=== PATIENT | male | born 1950 | race Caucasian/White ===

== ENCOUNTER → 2019-05-23 | Outpatient (CLI) | payer OTHER ==
--- NOTE | 2019-05-23 18:37 | XR ---
EXAMINATION TYPE: XR Hip RT and AP Pelvis DATE OF EXAM: 05/23/2019 COMPARISON: NONE HISTORY: Right hip pain TECHNIQUE: A single AP view of the pelvis is obtained. Two views of the right hip are obtained. FINDINGS: There is no acute fracture/dislocation evident in the pelvis. The hip and sacroiliac join ts appear symmetric and unremarkable. The overlying soft tissue appears unremarkable. Two views of right hip show no acute fracture or dislocation. There is joint space loss in the right hip with remodeling, subchondral sclerosis. There is marginal spurring greater than left. No focal l ytic or sclerotic lesion seen in the proximal right femur. The overlying soft tissue is unremarkable . Degenerative disc changes are noted incidentally within the lumbar spine. IMPRESSION: Osteoarthritis, degenerative disc disease.
== END | disposition home or self-care (01) ==
LOC: RADXRMAIN 14:37
PROVIDERS: ATTEND Orthopaedic Surgery
DX: M16.11 Unilateral primary osteoarthritis, right hip (principal); M25.851 Other specified joint disorders, right hip; M25.552 Pain in left hip
CPT/HCPCS: 73502

== ENCOUNTER → 2020-01-29 | Outpatient (CLI) | payer MEDICARE | END | disposition home or self-care (01) | LOC: LABPAT 13:04 | PROVIDERS: ATTEND Orthopaedic Surgery | DX: Z01.818 Encounter for other preprocedural examination (principal); M16.11 Unilateral primary osteoarthritis, right hip; Z01.812 Encounter for preprocedural laboratory examination | CPT/HCPCS: 87070 ==

== ENCOUNTER 2020-02-05 08:32 | Inpatient (IN) | payer MEDICARE, OTHER ==
[2020-01-30 15:24] VITALS: BMI 33.3
--- NOTE | 2020-02-04 09:37 | HP ---
HISTORY AND PHYSICAL DATE OF SURGERY: 02/05/2020 HISTORY OF PRESENT ILLNESS: Ranjan Lanier is a 69-year-old patient seen with symptomatic right hip osteoarthritis. We discussed options. He elected to proceed with right total hip arthroplasty. Consent was obtained. PAST MEDICAL HISTORY: Hypertension, gout. PAST SURGICAL HISTORY: Noncontributory. MEDICATIONS: Effexor, allopurinol, losartan. ALLERGIES: None. SOCIAL HISTORY: Denies current tobacco use. PHYSICAL EXAMINATION: Evaluation of the right hip: There is diffuse tenderness about the hip girdle. Very limited range of motion with severe pain. Positive hip impingement sign. Straight leg raise is negative. Distal neurovascular exam is intact. RADIOGRAPHS: Right hip radiographs reveal severe osteoarthritic changes. IMPRESSION: 1. Right hip osteoarthritis. 2. Hypertension. PLAN: Direct anterior right total hip arthroplasty. MMODL / IJN: [id number] /
[~2020-02-05 08:32] MED LIST: ACETAMINOPHEN TAB 500 MG TAB PO ONE; DEXAMETHASONE SOD PHOSPHATE 10 MG/ML 1 ML VIAL IV ONE; MELOXICAM 7.5 MG TAB PO ONE; ONDANSETRON 4 MG/2 ML VIAL IVP ONE; ROPIVACAINE 246.25 MG, EPINEPHrine 0.5 MG, KETOROLAC 30 MG, cloNIDine HCL/PF 80 MCG, WA... MISCELLANE ONE; TRANEXAMIC ACID 1,000 MG in SODIUM CHLORIDE 0.9% 100 ML IVPB ONE
[2020-02-05] MEDS ORDERED: ACETAMINOPHEN TAB 500 MG TAB ONE (09:37)
[2020-02-05] MEDS ORDERED: ONDANSETRON 4 MG/2 ML VIAL ONE (09:37)
[2020-02-05] MEDS: LACTATED RINGERS 1,000 ML IV SCH ×2 (09:40→16:23)
[2020-02-05] MEDS ORDERED: MIDAZOLAM 2 MG/2 ML VIAL IVP ONE (09:40)
[2020-02-05] MEDS ORDERED: ePHEDrine SULFATE/0.9% NACL/PF 50 MG/5 ML SYRINGE IV ONE (10:19)
[2020-02-05] MEDS ORDERED: LIDOCAINE 1% INJ 10MG/ML (20 ML MDV) ONE (10:19)
[2020-02-05] MEDS ORDERED: diphenhydrAMINE 50 MG/ML 1 ML VIAL ONE (10:19)
[2020-02-05] MEDS ORDERED: MIDAZOLAM 2 MG/2 ML VIAL ONE (10:19)
[2020-02-05] MEDS ORDERED: KETAMINE 10 MG/ML 20 ML VIAL ONE (10:19)
[2020-02-05] MEDS ORDERED: SODIUM CHLORIDE 0.9% 100 ML BAG ONE (10:19)
[2020-02-05] MEDS ORDERED: TRANEXAMIC ACID 1,000 MG/10 ML VIAL ONE (10:19)
[2020-02-05] MEDS ORDERED: PHENYLEPHRINE-0.9% NACL SYG 1 MG/10 ML SYRINGE ONE (10:19)
[2020-02-05] MEDS ORDERED: fentaNYL (PF) 50 MCG/ML 2 ML AMP ONE (10:19)
[2020-02-05] MEDS ORDERED: PROPOFOL 10 MG/ML 20 ML VIAL IV ONE (10:19)
[2020-02-05] MEDS ORDERED: LACTATED RINGERS 1,000 ML IV ONE ×3 (11:00→15:57)
[2020-02-05] MEDS ORDERED: traMADol 50 MG TAB PO PRN (12:06)
[2020-02-05] MEDS ORDERED: NALOXONE 0.4 MG/ML 1 ML VIAL IV PRN (12:06)
[2020-02-05] MEDS ORDERED: HYDROmorphone 1 MG/ML 1 ML SYRINGE IVP PRN (12:06)
[2020-02-05] MEDS ORDERED: HYDROmorphone 0.5 MG/0.5 ML SYRINGE IVP PRN ×2 (12:06)
[2020-02-05] MEDS ORDERED: ONDANSETRON 4 MG/2 ML VIAL IVP PRN (12:06)
[2020-02-05] MEDS ORDERED: HYDROcodone/APAP 7.5-325MG 1 EACH TAB PO PRN (12:06)
--- NOTE | 2020-02-05 12:06 | P.OP ---
Date of Procedure: 02/05/20 Preoperative Diagnosis: Right hip osteoarthritis Postoperative Diagnosis: Right hip osteoarthritis Procedure(s) Performed: Direct anterior right total hip arthroplasty Implants: 1. Depuy Corail size 15 high offset collared press-fit femoral stem 2. Depuy pinnacle 60 mm press-fit acetabular shell 3. Depuy pinnacle +4 neutral polyethylene acetabular liner 36 mm ID 60 mm OD 4. Biolox delta ceramic femoral head +1.5 36 mm Anesthesia: local, spinal Surgeon: Lio Huggins Senior Engineering Team Leader #1: Garcia Miller Estimated Blood Loss (ml): 250 Pathology: other (Femoral head) Condition: stable Disposition: PACU Indications for Procedure: 69-year-old patient seen with symptomatic right hip osteoarthritis. After having treatment options discussed, he elected to proceed with total hip arthroplasty. Operative Findings: See description of procedure Description of Procedure: The patient was taken to the operative suite. Patient underwent a spinal anesthetic by the department of anesthesia. Patient was then transferred to the [place] table. Patient was given preoperative IV antibiotics and TXA. Both lower extremities were placed in standard leg spars. The hip was then prepped and draped in the normal sterile orthopedic fashion. A standard anterior incision was made beginning 3 cm lateral and 1 cm distal to the ASIS extending 10 cm. Dissection was then carried down through the subcutaneous soft tissues down to the fascia overlying the tensor fascia evelyn. An incision was now made through the fascia. Careful dissection was taken down exposing the tensor fascia evelyn muscle. A Cobra retractor was now placed along the medial femoral neck and a second one along the lateral femoral neck. The venous circumflex vessels were now identified, cauterized and clipped. We identified the anterior hip capsule. An incision was made through the hip capsule along the lateral border. I performed a partial anterior capsulectomy. Retractors were now placed around the femoral neck itself. A femoral neck cut was now made with a sagittal saw. It was completed with an osteotome at the lateral neck area. The femoral head was now removed without difficulty. The extremity was now rotated to 45 of external rotation. It was locked in position. Residual labrum was now debrided out. Serial reaming was performed of the acetabulum while Jose TEJEDA assisted holding an anterior retractor for exposure. Once we reached the appropriate size and a trial was position and fit nicely. The appropriate size was now chosen opened and made available. It was introduced into the acetabulum without difficulty. The C-arm/fluoroscopy was now brought into the operative field. We made sure we had a true AP pelvic view. We now under direct C- arm/fluoroscopy introduced into the acetabular component with appropriate version and inclination. I held the cup in appropriate position well Jose TEJEDA used a mallet to seat the acetabular component. I noted the component now to be well seated and stable. Acetabular cup introduce her was removed. The C-arm was pulled back. An appropriate liner was introduced and clicked into position. It was felt to be stable. At this point retractors were removed. The extremity was now placed into 120 external rotation with no traction. The leg was now dropped to the ground and adducted. Appropriate retractors were now positioned along the proximal femur. We also placed our femoral look into position. Additional capsular releasing was performed to gain access to the proximal femur. We now used a box osteotome. A canal finder was now utilized. Serial broaching was now performed with the assistance of Jose TEJEDA tapping the broaches down with a mallet while held the broach in appropriate rotation and position. This was done until we reached the appropriate size with good overall rotational stability. Appropriate calcar planing was performed. A trial head/neck was placed into position. The hip was now reduced. The C- arm/fluoroscopy was brought back into the operative field. An AP pelvis was obtained to ascertain leg lengths which seemed to be reasonably aligned. The C- arm/fluoroscopy was pulled back. Retractors were repositioned and the hip was dislocated. The leg was again taken down to the ground and adducted. Appropriate retractors were repositioned as well as the femoral hook. All trial components were removed. The femoral implant was opened along with the femoral head. The femoral implant was introduced on the appropriate handle into our pre-broached area. I held the component position well Jose TEJEDA used a mallet to seat the femoral component. The femoral component was now noted to be well seated and stable.. The femoral head was introduced with good positioning and fixation noted. Retractors were now removed. The hip was now reduced. There appeared be good positioning of the hip confirmed on intraoperative fluoroscopy. Spot films were obtained to document this. A second gram of TXA was given. The deep and superficial soft tissues were infiltrated with local analgesic. Bipolar cautery had been utilized intermittently through the procedure for hemostasis. The wound was irrigated copiously with pulse lavage mechanical irrigation. The fascia was repaired with Vicryl suture. The subcutaneous soft tissues were repaired in layers with Vicryl suture. The skin was approximated with pernio/Dermabond. Sterile dressings were applied. Patient was then awakened, transferred to a bed and taken to recovery in stable condition. Jose TEJEDA assisted with the complex procedure.
--- NOTE | 2020-02-05 12:28 | XR ---
EXAMINATION TYPE: XR Hip Limited RT DATE OF EXAM: 02/05/2020 COMPARISON: NONE HISTORY: . Postop TECHNIQUE: One view submitted. FINDINGS: There is postsurgical change in near anatomic alignment. There is soft tissue edema and emphysema. IMPRESSION: 1. Postoperative change. Appears in near-anatomic alignment.
--- NOTE | 2020-02-05 12:29 | FL ---
EXAMINATION TYPE: FL guidance operating room DATE OF EXAM: 02/05/2020 HISTORY: Fluoroscopy time 19 seconds of fluoroscopy provided. IMPRESSION: 1. Fluoroscopy time.
[2020-02-05] MEDS: HYDROmorphone 0.5 MG/0.5 ML SYRINGE IVP PRN ×2 (15:30→15:45)
[2020-02-05] MEDS: HYDROcodone/APAP 7.5-325MG 1 EACH TAB PO PRN (19:33)
[2020-02-05] MEDS ORDERED: SENNOSIDES-DOCUSATE SODIUM 1 EACH TAB PO SCH (21:00)
--- NOTE | 2020-02-05 22:20 | P.CONS ---
History of Present Illness - Reason for Consult Consult date: 02/05/20 Medical management Requesting physician: Lio Huggins - Chief Complaint Right hip pain - History of Present Illness Consultation: This is a pleasant 69-year-old patient of Dr. Kameron Landeros. Chronic stable medical conditions include hypertension, osteoarthritis, gout, depression. Patient has undergone right total hip arthroplasty. Postprocedure pain is well controlled. Has also walked a bit. Did tolerate her supper. No nausea vomiting. Denies any cardiac history. Review of systems: GEN.: None EYES: None HEENT: None NECK: None RESPIRATORY: None CARDIOVASCULAR: None GASTROINTESTINAL: None GENITOURINARY: None MUSCULOSKELETAL: Joint pains LYMPHATICS: None HEMATOLOGICAL: None PSYCHIATRY: None NEUROLOGICAL: None Past medical history to include: Hypertension, osteoarthritis, sleep apnea doesn't stool anymore, gout, diverticulitis, depression, open heart surgery age of 6 for PDA Social history: Does not smoke. Alcohol occasionally. Retired. Physical examination: VITAL SIGNS: 98.1, 87, 15, 110/65, 92% on room air GENERAL: BMI 32.6, laying in bed, very comfortable. EYES: Pupils equal. Conjunctiva normal. HEENT: External appearance of nose and ears normal, oral cavity grossly normal. NECK: JVD not raised; masses not palpable. HEART: First and second heart sounds are normal; no edema. LUNGS: Respiratory rate normal; clear to auscultation. ABDOMEN: Soft, nontender, liver spleen not palpable, no masses palpable. PSYCH: Alert and oriented x3; mood and affect normal MUSCULOSKELETAL: Evidence of OA, dressing over the right hip. NEUROLOGICAL: Cranial nerves grossly intact; no facial asymmetry, power and sensation grossly intact. LYMPHATICS: No lymph nodes palpable in the axilla and neck INVESTIGATIONS, reviewed in the clinical context:: No labs Assessment: -Right total hip arthroplasty -Primary osteoarthritis -Depression otherwise specified -Obesity BMI 32.6 -Chronic gout on allopurinol Plan: Home medications to continue. Pain control is in place. Patient is on IV Ancef to full activity. Getting IV fluids. Patient is on Lovenox for DVT prophylaxis per Dr. Couch. Care was discussed with the patient. Question were answered. Thank you Dr. Couch Past Medical History Past Medical History: Hypertension, Osteoarthritis (OA), Sleep Apnea/CPAP/BIPAP Additional Past Medical History / Comment(s): doesn't use CPAP, doesn't really snore anymore either, hx. gout, diverticulitis, told years ago might develop breathing problems relating to his prior work but has no problems dx. @this time History of Any Multi-Drug Resistant Organisms: None Reported Past Surgical History: Orthopedic Surgery, Tonsillectomy Additional Past Surgical History / Comment(s): open heart surg. @age of 6 for PDA, [facility] for plantar fascitis, growth removed from lower abd., colonos copies Past Anesthesia/Blood Transfusion Reactions: No Reported Reaction Past Psychological History: Depression Smoking Status: Never smoker Past Alcohol Use History: Occasional Past Drug Use History: None Reported - Past Family History Mother Family Medical History: No Reported History Medications and Allergies Home Medications Medication Instructions Recorded Confirmed Type Allopurinol [Zyloprim] 300 mg PO DAILY 01/30/20 02/05/20 History Ascorbic Acid [Vitamin C] 1,000 mg PO DAILY 01/30/20 02/05/20 History Cholecalciferol [Vitamin D3 (25 2,000 unit PO DAILY 01/30/20 02/05/20 History Mcg = 1000 Iu)] Losartan/Hydrochlorothiazide 1 tab PO DAILY 01/30/20 02/05/20 History [Losartan-Hctz 100-12.5 mg Tab] Multivit-Min/FA/Lycopen/Lutein 1 each PO DAILY 01/30/20 02/05/20 History [Centrum Silver Tablet] Whiting-3 Fatty Acids/Fish Oil [Fish 1 each PO DAILY 01/30/20 02/05/20 History Oil 1,000 mg Softgel] Venlafaxine HCl ER [Effexor Xr] 150 mg PO DAILY 01/30/20 02/05/20 History Vitacell 1 tab PO DAILY 01/30/20 02/05/20 History Allergies Allergy/AdvReac Type Severity Reaction Status Date / Time No Known Allergies Allergy Verified 02/05/20 09:06 Physical Exam Vitals: Vital Signs Temp Pulse Pulse Resp BP BP Pulse Ox 02/05/20 19:26 87 18 94 L 02/05/20 19:10 98.1 F 15 110/65 92 L 02/05/20 16:25 98.0 F 85 18 127/82 94 L 02/05/20 16:00 76 16 118/67 96 02/05/20 15:30 74 16 132/62 96 02/05/20 14:30 60 16 105/54 97 02/05/20 14:00 63 16 101/72 97 02/05/20 13:30 71 16 111/60 95 02/05/20 13:19 75 16 113/60 96 02/05/20 13:04 68 16 119/62 98 02/05/20 12:49 69 18 118/65 100 02/05/20 12:34 66 16 106/63 100 02/05/20 12:19 96.8 F L 67 16 97/60 97 02/05/20 08:52 97.1 F L 71 18 111/64 98 Intake and Output 02/05/20 02/05/20 02/05/20 06:59 14:59 22:59 Intake Total 1650 1090 Output Total 250 Balance 1400 1090 Intake: IV 1650 450 Intake, IV Titration 640 Amount Lactated Ringers 1,000 ml 640 @ 80 mls/hr IV .[id number] [facility] Rx#:[id number] Output: Estimated Blood Loss 250 Other: Voiding Method Toilet # Voids 1 Weight 115.3 kg 115.3 kg
[2020-02-06] MEDS: HYDROcodone/APAP 7.5-325MG 1 EACH TAB PO PRN ×2 (02:00→12:10)
[2020-02-06] MEDS: LACTATED RINGERS 1,000 ML IV SCH ×3 (02:00→07:42)
[2020-02-06 07:25] VITALS: PULSE 66
[2020-02-06 07:55] LABS: Basophils % (A) 0 %; Eosinophils % (A) 0 %; HCT 33.7 % (39.0-53.0); HGB 11.1 gm/dL (13.0-17.5); Lymphocytes # (A) 1.7 k/uL (1.0-4.8); Lymphocytes % (A) 16 %; MCH 32.9 pg (25.0-35.0); MCV 99.6 fL (80.0-100.0); Mean Platelet Volume 7.6; Monocytes # (A) 0.6 k/uL (0-1.0); Monocytes % (A) 6 %; Neutrophils # (A) 7.7 k/uL (1.3-7.7); Neutrophils % (A) 76 %; Platelet Count 173 k/uL (150-450); RBC 3.39 m/uL (4.30-5.90); RDW 12.8 % (11.5-15.5); WBC 10.2 k/uL (3.8-10.6)
[2020-02-06] MEDS ORDERED: ALLOPURINOL 300 MG TAB PO SCH (09:00)
[2020-02-06] MEDS ORDERED: [UNRECOGNIZED DRUG - OTHER] PO SCH (09:00)
[2020-02-06] MEDS ORDERED: VENLAFAXINE HCL ER 150 MG CAP PO SCH (09:00)
[2020-02-06] MEDS ORDERED: LOSARTAN 50 MG TAB PO SCH (09:00)
[2020-02-06] MEDS ORDERED: MELOXICAM 7.5 MG TAB PO SCH (09:00)
[2020-02-06] MEDS ORDERED: ENOXAPARIN 40 MG/0.4 ML SYRINGE SQ SCH (09:00)
[2020-02-06] MEDS ORDERED: LOSARTAN-HCTZ 50-12.5 MG 1 EACH TAB PO SCH (09:00)
--- NOTE | 2020-02-06 13:08 | P.PN ---
Subjective Progress Note Date: 02/06/20 Principal diagnosis: Status post direct anterior right total hip arthroplasty Patient evaluated bedside, is resting comfortably. He has no acute complaints. He denies any headaches, lightheadedness, chest pain or shortness of breath. Objective - Vital Signs Vital signs: Vital Signs Temp 98.2 F 02/06/20 06:40 Pulse 66 02/06/20 06:40 Resp 17 02/06/20 06:40 BP 114/61 02/06/20 06:40 Pulse Ox 95 02/06/20 06:40 Intake & Output 02/05/20 02/06/20 02/06/20 18:59 06:59 18:59 Intake Total 2100 640 Output Total 250 Balance 1850 640 Weight 115.3 kg Intake: IV 2100 Intake, IV Titration 640 Amount Lactated Ringers 1,000 ml 640 @ 80 mls/hr IV .[id number] [facility] Rx#:[id number] Output: Estimated Blood Loss 250 Other: Voiding Method Toilet # Voids 1 - Exam Right lower extremity: Incision is clean, dry, and intact. The optifoam is in good condition. There is minimal soft tissue swelling and ecchymosis surrounding the medial and lateral aspects of the incision. Calf is soft, no tenderness with palpation. Plantar flexion, dorsiflexion, EHL, FHL are intact. Sensory exam to light touch throughout the extremity is intact, dorsal pedis pulses 2+. - Labs CBC & Chem 7: 02/06/20 06:44 Labs: Abnormal Lab Results - Last 24 Hours (Table) 02/06/20 Range/Units 06:44 RBC 3.39 L (4.30-5.90) m/uL Hgb 11.1 L (13.0-17.5) gm/dL Hct 33.7 L (39.0-53.0) % Assessment and Plan Assessment: Status post direct anterior right total hip arthroplasty Plan: pain control, plan for discharge home on oral medication GI and DVT prophylaxis, aspirin 81 mg twice a day Wound care instructions discussed Home physical therapy and nursing after discharge Medical recommendations Plan for discharge home today Time with Patient: Less than 30
--- NOTE | 2020-02-06 13:10 | P.DS ---
Providers Date of admission: 02/05/20 08:32 Expected date of discharge: 02/06/20 Attending physician: Lio Huggins Consults: 02/05/20 12:06 Consult Physician Routine Consulting Provider: Kameron Landeros Consult Reason/Comments: Medical management Do you want consulting provider notified?: Yes Primary care physician: Kameron Landeros MD Hospital Course: Date of admission: 02/05/2020 Date of discharge: 02/06/2020 Admission diagnosis: Status post direct anterior right total hip arthroplasty Discharge diagnosis: Same Attending physician: Dr. Huggins Surgical procedures: Direct anterior right total hip arthroplasty Brief history: Patient is a 69-year-old male with a history of progressive primary right hip osteoarthritis. At this point patient has failed conservative treatment measures and has opted to proceed with a elective direct anterior right total hip arthroplasty. Hospital course: Details of patient's surgery can be found in operative report. Patient tolerated the procedure well and was subsequently transported to orthopedic floor. Patient's orthopeidc and medical care was provided daily. Patient had daily laboratory tests performed for evaluation of overall blood counts. Patient had daily physical therapy to include strengthening range of motion as well as education with walker ambulation. Patient was treated with Lovenox for their postoperative DVT prophylaxis during their inpatient stay. Patient was noted to have a relatively uneventful postoperative course. Patient reported satisfactory pain control with oral pain medications by postoperative day 0. Patient showed satisfactory progress with physical therapy. Patient moved steadily through the program and had no difficulty meeting the goals by postoperative day 1. Given patient's otherwise satisfactory course and having met physical therapy goals, plan is to discharge patient home on postoperative day 1. Discharge condition/disposition: Patient will be discharged home in stable condition. Discharge medications: Instructions are given on resumption of patient's normal daily medications per primary care recommendation, in addition patient will be prescribed Forest 7.5 mg/325 mg, Colace 100 mg, aspirin 81 mg. Discharge instructions: 1. Wound care and infection precautions, keep incision dry and covered while showering, no lotions, creams, moisturizers. No soaking, tubs, pools, hottubs. Do not scrub over the incision. 2. Weight-bear [as tolerated] with walker / cane until follow-up. 3. Ice and elevate when necessary. Do not exceed 20 minutes per hour with ice pack. 4. Utilize compression sleeve until seen at first follow up appointment. 5. Visiting nursing care. 6. Home physical therapy. 7. Pain meds and anticoagulants per prescription. 8. Pain medication has potential to cause constipation. Increase oral fluid and fiber intake. Contact primary care provider if you have not had a bowel movement within 48 hours after discharge 9. No anti-inflammatory medication until discussed at first post operative visit, this including Motrin, Aleve, Mobic, Diclofenac. 10. Follow up in office at 2 weeks postop with Jose Miller PA-C 11. Follow up with your primary care doctor 7-10 days after discharge. 12. Contact [facility] with any questions, . Procedures: Direct anterior right total hip arthroplasty Patient Condition at Discharge: Good Plan - Discharge Summary Discharge Rx Participant: Yes New Discharge Prescriptions: New Aspirin [Adult Low Dose Aspirin EC] 81 mg PO BID #60 tablet. Docusate [Colace] 100 mg PO DAILY #30 capsule HYDROcodone/APAP 7.5-325MG [Forest 7.5] 1 - 2 each PO Q6HR PRN #40 tab PRN Reason: Pain Continue Cholecalciferol [Vitamin D3 (25 Mcg = 1000 Iu)] 2,000 unit PO DAILY Venlafaxine HCl ER [Effexor XR] 150 mg PO DAILY Losartan/Hydrochlorothiazide [Losartan-Hctz 100-12.5 mg Tab] 1 tab PO DAILY Allopurinol [Zyloprim] 300 mg PO DAILY Vitacell 1 tab PO DAILY [place]-3 Fatty Acids/Fish Oil [Fish Oil 1,000 mg Softgel] 1 each PO DAILY Multivit-Min/FA/Lycopen/Lutein [Centrum Silver Tablet] 1 each PO DAILY Ascorbic Acid [Vitamin C] 1,000 mg PO DAILY Discharge Medication List Allopurinol [Zyloprim] 300 mg PO DAILY 01/30/20 [History] Ascorbic Acid [Vitamin C] 1,000 mg PO DAILY 01/30/20 [History] Cholecalciferol [Vitamin D3 (25 Mcg = 1000 Iu)] 2,000 unit PO DAILY 01/30/20 [History] Losartan/Hydrochlorothiazide [Losartan-Hctz 100-12.5 mg Tab] 1 tab PO DAILY 01/30/20 [History] Multivit-Min/FA/Lycopen/Lutein [Centrum Silver Tablet] 1 each PO DAILY 06/30/20 [History] Clinton-3 Fatty Acids/Fish Oil [Fish Oil 1,000 mg Softgel] 1 each PO DAILY 01/30/20 [History] Venlafaxine HCl ER [Effexor XR] 150 mg PO DAILY 01/30/20 [History] Vitacell 1 tab PO DAILY 01/30/20 [History] Aspirin [Adult Low Dose Aspirin EC] 81 mg PO BID #60 tablet. 02/06/20 [Rx] Docusate [Colace] 100 mg PO DAILY #30 capsule 02/06/20 [Rx] HYDROcodone/APAP 7.5-325MG [Forest 7.5] 1 - 2 each PO Q6HR PRN #40 tab 02/06/20 [Rx] Follow up Appointment(s)/Referral(s): Kameron Landeros MD [Primary Care Provider] - 1 Week [facility], [NON-STAFF] - As Needed Garcia Miller PAC [PHYSICIAN DIRECTOR [employer]] - 02/21/20 2:10 pm Activity/Diet/Wound Care/Special Instructions: Orthopedic Discharge Instructions: 1. Wound care and infection precautions, keep incision dry and covered while showering, no lotions, creams, moisturizers. No soaking, pools, hot tubs. Do not scrub over incision. 2. Weight-bear as tolerated with walker / cane until follow-up. 3. Ice and elevate when necessary. Do not exceed 20 minutes per hour with ice pack. 4. Utilize compression sleeve until seen at first follow up appointment. 5. Pain meds and anticoagulants per prescription. 6. Pain medication has potential to cause constipation. Increase oral fluid and fiber intake. Contact primary care provider if you have not had a bowel movement within 48 hours after discharge. 7. No anti-inflammatory medication until discussed at first post operative visit, this including Motrin, Aleve, Mobic, Diclofenac. 8. Follow up in office at 2 weeks postop with Jose Miller PA-C 9. Follow up with your primary care doctor 7-10 days after discharge. 10. Contact [facility] with any questions, . Discharge Disposition: HOME WITH HOME HEALTH SERVICES
[2020-02-06 15:41] VITALS: BP 109/57; RESP 18; TEMP 98.1
--- NOTE | 2020-02-06 22:58 | P.PN ---
Progress Note - Text Progress Note Date: 02/06/20 - Chief Complaint Right hip pain Consultation: This is a pleasant 69-year-old patient of Dr. Kameron Landeros. Chronic stable medical conditions include hypertension, osteoarthritis, gout, depression. Patient has undergone right total hip arthroplasty. Today-sitting up. Pain control. Doing well. No nausea vomiting. Did tolerate her diet. Comfortable. Review of systems: Was done for constitutional, cardiovascular, GI, pulmonary. Musculoskeletal relevant finding as above Current medications reviewed in today's electronic records Physical examination: VITAL SIGNS: 98.1, 66, 18, 109/57, 95% room air GENERAL: Sitting up, comfortable EYES: Pupils equal. Conjunctiva normal. HEENT: External appearance of nose and ears normal, oral cavity grossly normal. NECK: JVD not raised; masses not palpable. HEART: First and second heart sounds are normal; no edema. LUNGS: Respiratory rate normal; clear to auscultation. ABDOMEN: Soft, nontender, liver spleen not palpable, no masses palpable. PSYCH: Alert and oriented x3; mood and affect normal MUSCULOSKELETAL: Evidence of OA, dressing over the right hip. INVESTIGATIONS, reviewed in the clinical context:: White count 10.2 hemoglobin 11.1 Assessment: -Right total hip arthroplasty -Primary osteoarthritis -Depression otherwise specified -Obesity BMI 32.6 -Chronic gout on allopurinol Plan: Continue current medication treatment plan. Discussed with patient. Thank you Dr. Couch
== END 2020-02-06 19:17 | disposition home health service (06) | DRG 470 ==
LOC: 2ORMAIN 08:32 → 4SSUR 16:06
PROVIDERS: ADMIT Orthopaedic Surgery; ATTEND Orthopaedic Surgery
PROC: 0SR904A Replacement of Right Hip Joint with Ceramic on Polyethylene Synthetic Substitute, Uncemented, Open Approach (ICD-10-PCS; principal; 2020-02-05 10:00)
DX: M16.11 Unilateral primary osteoarthritis, right hip (principal); I10 Essential (primary) hypertension; F32.9 Major depressive disorder, single episode, unspecified; E66.9 Obesity, unspecified; G47.30 Sleep apnea, unspecified; M1A.9XX0 Chronic gout, unspecified, without tophus (tophi); Z79.899 Other long term (current) drug therapy; Z68.32 Body mass index [BMI] 32.0-32.9, adult; Z98.890 Other specified postprocedural states; Z87.74 Personal history of (corrected) congenital malformations of heart and circulatory system; Z87.19 Personal history of other diseases of the digestive system; Z90.89 Acquired absence of other organs
CPT/HCPCS: 36415; 73501; 85025; 86850; 86900; 86901; 88300

== ENCOUNTER → 2023-08-13 | Outpatient (CLI) | payer MEDICARE ==
--- NOTE | 2023-08-13 12:00 | FL ---
Fluoroscopy INDICATION: Difficulty breathing FINDINGS: There is elevation of the left diaphragm. With quiet breathing there is normal excursion of the right diaphragm. No significant motion is noted at the left diaphragm. With active sniffing there is appar ent Paradoxical motion of the left diaphragm. Findings can be compatible with paralysis of the left d iaphragm. Fluoroscopy time: Not recorded seconds. Total dose area product (DAP) in uGy*m?, mGy*cm? (or similar): None Images obtained: 0. IMPRESSION: 1. 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
--- NOTE | 2023-08-13 13:20 | CT ---
EXAMINATION TYPE: CT chest wo con. High-resolution technique DATE OF EXAM: 08/13/2023 COMPARISON: None HISTORY: Disprders of the diaphram, difficulty breathing CT DLP: 1766 mGycm. Automated Exposure Control for Dose Reduction was Utilized. TECHNIQUE: CT scan of the thorax is performed without IV contrast. High-resolution technique was uti lized. Scanning was performed in the prone and supine positions. FINDINGS: There is a 6 mm subpleural parenchymal nodule in the right middle lobe and a 1 to 2 mm nodule in the subpleural parenchymal left lower lobe. There is a single coarse and interstitial density in the lingula. There is no abnormal airspace densi ty. There is no honeycombing, groundglass density or bronchiectasis. There is no pleural effusion or pneumothorax. The great vessels the chest are normal is no mediastinal, hilar or axillary adenopathy. Limited scanning the upper abdomen reveals no gross abnormality. No focal osseous lesions are seen. IMPRESSION: 1. No acute cardiopulmonary disease. 2. No significant chronic lung changes. 3. Single subcentimeter 6 mm bilateral pulmonary nodules bilaterally. Lung RADS category 2 benign fin dings. This is a high risk patient, then routine screening at yearly intervals is recommended. Follow-up recommendations for incidental pulmonary nodules are per [employer] or [employer].
== END | disposition home or self-care (01) ==
LOC: RADUSWWP 08:11
PROVIDERS: ATTEND Internal Medicine
DX: R91.8 Other nonspecific abnormal finding of lung field (principal); J84.10 Pulmonary fibrosis, unspecified; J98.6 Disorders of diaphragm
CPT/HCPCS: 71250; 76000

== ENCOUNTER → 2024-04-10 | Outpatient (CLI) | payer MEDICARE ==
[2024-04-10 14:50] LABS: African American GFR (CKD) >90 (>60 ml/min/1.73 sqM); Blood Urea Nitrogen 20 mg/dL (9-20); Non-African American GFR(CKD) >90 (>60 ml/min/1.73 sqM)
--- NOTE | 2024-04-10 15:42 | CT ---
EXAMINATION TYPE: CT chest w con DATE OF EXAM: 04/10/2024 COMPARISON: 08/13/2023 HISTORY: abnormal findings of lung field CT DLP: 812 mGycm Automated exposure control for dose reduction was used. TECHNIQUE: CT scan of the chest is performed with IV Contrast, patient injected with 100 mL of Isovue 300. MIP Images are created on CT scanner and reviewed. 3D reconstructed images are created on an independent workstation and reviewed. FINDINGS: There are mild interstitial changes in the lung bases otherwise the lungs are clear. There is a stable 6 mm subpleural parenchymal nodule in the right middle lobe. There is a stable 3 to 4 mm nodule in the left lower lobe. No new or suspicious lung masses or nodules are seen. The great vessels chest are normal and is no mediastinal, hilar or axillary adenopathy. There is no pleural effusion or pneumothorax. Limited scanning through the upper abdomen reveals no gross abnormality. No focal osseous lesions are seen. IMPRESSION: 1. Stable single bilateral sub-6 mm pulmonary nodules as described above.. If this is a high-risk pat ient, then continue routine screening at yearly intervals. 2. No acute cardiopulmonary disease.
== END | disposition home or self-care (01) ==
LOC: RADCTMAIN 13:45
PROVIDERS: ATTEND Internal Medicine
DX: R91.8 Other nonspecific abnormal finding of lung field (principal)
CPT/HCPCS: 36415; 71260; 82565; 84520